=== PATIENT | male | born 1965 | race Caucasian/White ===

== ENCOUNTER 2017-05-23 13:15 | Inpatient (IN) | payer MEDICAID ==
[~2017-05-23] VITALS: Ht 175.3 cm; Wt 96.0 kg
[~2017-05-23 13:15] MED LIST: ALBU8.5H5 PO; ARIP5TAB13 PO; ATOR20TA9 PO; BECL8.7A7 INH; CLON2TAB PO; DIVA500T2 PO; ENAL10TA PO; HYDR25TA11 PO; HYDR50TA13 PO; INSU100V13 SQ; LATUDA; LISI-167 PO; LISI40TA PO; METF500T4 PO; OXCA600T3 PO; PARO40TA61 PO; QUET200T4 PO; REMERON; SIMV20TA3 PO; ZOLP10TA PO
[2017-05-23] MEDS ORDERED: SODIUM CHLORIDE 0.9% 1,000ML IVBOLUS ONE (14:00)
[2017-05-23] MEDS ORDERED: SODIUM CHLORIDE FLUSH 10ML SYR IVF ONE (14:00)
[2017-05-23] MEDS ORDERED: ONDANSETRON 2MG/ML, 2ML IVPush ONE (14:00)
[2017-05-23 14:15] LABS: HEMATOCRIT 45.2 % (39.2-51.8); HEMOGLOBIN 15.3 g/dL (13.7-18.0); WHITE BLOOD COUNT 9.1 x10^3/uL (3.4-10)
[2017-05-23] MEDS ORDERED: ONDANSETRON 2MG/ML, 2ML ONE (14:25)
[2017-05-23 14:29] LABS: ASPARTATE AMINO TRANSFERASE 20 U/L (15-37); BLOOD UREA NITROGEN 13 mg/dL (7-18)
[2017-05-23] MEDS ORDERED: OMNIPAQUE 350 MG/ML, 100ML BOTTLE ONE (14:59)
[2017-05-23] MEDS ORDERED: DEXTROSE 10%, 250ML IV ONE (15:30)
[2017-05-23] MEDS ORDERED: ONDANSETRON 2MG/ML, 2ML IVPush PRN (17:30)
[2017-05-23] MEDS ORDERED: hydrALAzine 20 MG/ML, 1ML IVPush PRN (17:30)
[2017-05-23] MEDS ORDERED: ACETAMINOPHEN 325 MG TABLET PO PRN (17:30)
[2017-05-23] MEDS ORDERED: HYDROcodone/APAP 5/325 TABLET PO PRN (17:30)
[2017-05-23] MEDS ORDERED: FUROSEMIDE 40 MG/4 ML IV ONE (17:30)
[2017-05-23] MEDS ORDERED: morphine SULFATE 10 MG/ML, 1ML IVPush PRN (17:30)
[2017-05-23] MEDS: SODIUM CHLORIDE 0.9% 1,000 ML IV SCH (18:36)
[2017-05-23 18:44] VITALS: BP 131/89
[2017-05-23 20:00] VITALS: BP 126/81
[2017-05-23] MEDS: INSULIN DETEMIR 100 UNITS/ML, PEN SQ-INSULIN SCH (20:26)
[2017-05-23] MEDS: ENOXAPARIN 40 MG/0.4 ML SQ SCH (20:38)
[2017-05-23] MEDS: PANTOPROZOLE 40MG TABLET PO SCH (20:38)
[2017-05-23] MEDS: OXCARBAZEPINE 150 MG TABLET PO SCH (20:39)
[2017-05-23] MEDS ORDERED: ATORVASTATIN 20 MG TABLET PO SCH (21:00)
[2017-05-23] MEDS ORDERED: CLON-365 PO (21:03)
[2017-05-23] MEDS ORDERED: ASPI-515 PO (21:04)
[2017-05-23] MEDS ORDERED: GLIP5TAB22 PO (21:04)
[2017-05-23] MEDS ORDERED: RESTLESS LEG PO (21:11)
[2017-05-23] MEDS ORDERED: QUET25TA5 PO (21:11)
[2017-05-23 22:33] LABS: IS PT STATUS REG ER OR PRE ER? NO
[2017-05-24] MEDS: SODIUM CHLORIDE 0.9% 1,000 ML IV SCH ×2 (02:06→10:30)
[2017-05-24 03:54] VITALS: BP_SYST 121; BP_SYST 133; BP_SYST 135; BP_DIAS 84; BP_DIAS 85; BP_DIAS 90
[2017-05-24 05:22] LABS: HEMATOCRIT 44.5 % (39.2-51.8); HEMOGLOBIN 15.2 g/dL (13.7-18.0); WHITE BLOOD COUNT 7.6 x10^3/uL (3.4-10)
[2017-05-24 05:46] LABS: ASPARTATE AMINO TRANSFERASE 24 U/L (15-37); BLOOD UREA NITROGEN 19 mg/dL (7-18)
[2017-05-24 05:47] LABS: IS PT STATUS REG ER OR PRE ER? NO
[2017-05-24 07:21] VITALS: BP 114/64
[2017-05-24 07:45] VITALS: BP 126/70
[2017-05-24] MEDS ORDERED: LISINOPRIL 20 MG TABLET PO SCH (09:00)
[2017-05-24] MEDS: INSULIN DETEMIR 100 UNITS/ML, PEN SQ-INSULIN SCH (09:00)
[2017-05-24] MEDS: PANTOPROZOLE 40MG TABLET PO SCH (10:37)
[2017-05-24] MEDS: OXCARBAZEPINE 150 MG TABLET PO SCH (10:38)
[2017-05-24] MEDS ORDERED: OMEP-110 PO (13:38)
[2017-05-24] MEDS ORDERED: MAGNESIUM SULFATE PMX 4GM/100M 100 ML IV ONE (14:00)
[2017-05-24 14:18] VITALS: BP 119/78
[2017-05-24] MEDS: ENOXAPARIN 40 MG/0.4 ML SQ SCH (17:30)
== END 2017-05-24 18:35 | disposition home or self-care (01) | DRG 74 ==
LOC: ED 14:04 → EDIP 16:29 → SUATTDRO 16:37 → 4EST 18:24
PROVIDERS: ADMIT Internal Medicine; ATTEND Internal Medicine
DX: G90.8 Other disorders of autonomic nervous system (principal); E11.649 Type 2 diabetes mellitus with hypoglycemia without coma; E87.1 Hypo-osmolality and hyponatremia; I10 Essential (primary) hypertension; E78.5 Hyperlipidemia, unspecified; E66.9 Obesity, unspecified; E78.00 Pure hypercholesterolemia, unspecified; Z68.31 Body mass index [BMI] 31.0-31.9, adult; F31.9 Bipolar disorder, unspecified; J45.909 Unspecified asthma, uncomplicated; K29.70 Gastritis, unspecified, without bleeding; R63.1 Polydipsia; Z82.49 Family history of ischemic heart disease and other diseases of the circulatory system; Z87.891 Personal history of nicotine dependence; Z85.828 Personal history of other malignant neoplasm of skin; Z88.5 Allergy status to narcotic agent
CPT/HCPCS: 36415; 71010; 74177; 80053; 81003; 82962; 83036; 83690; 83735; 84100; 84443; 84484; 85025; 93005; 93306; 93880; 96361; 96374; J1650; J1940; J2405; Q9967; J3475; J7030

== ENCOUNTER 2017-07-21 07:35 | Emergency (ER) | payer MEDICAID ==
[~2017-07-21] VITALS: Ht 175.3 cm; Wt 95.6 kg
[~2017-07-21 07:35] MED LIST changes: +ASPI-515 PO; +CLON-365 PO; +GLIP5TAB22 PO; +OMEP-110 PO; +QUET25TA5 PO; +RESTLESS LEG PO
[2017-07-21 09:07] VITALS: BP 160/97
== END 2017-07-21 09:09 | disposition home or self-care (01) ==
LOC: ED 08:48
DX: J20.8 Acute bronchitis due to other specified organisms (principal); B96.89 Other specified bacterial agents as the cause of diseases classified elsewhere; E11.9 Type 2 diabetes mellitus without complications; E78.00 Pure hypercholesterolemia, unspecified; J45.909 Unspecified asthma, uncomplicated; I10 Essential (primary) hypertension; G43.909 Migraine, unspecified, not intractable, without status migrainosus
CPT/HCPCS: 71020; 93005; 99284

== ENCOUNTER 2018-06-09 19:28 | Emergency (ER) | payer MEDICAID ==
[~2018-06-09] VITALS: Ht 175.3 cm; Wt 100.0 kg
[~2018-06-09 19:28] MED LIST changes: -CLON-365 PO; +CLON1TAB11 PO; +METF500T17 PO; -METF500T4 PO
[2018-06-09 19:39] VITALS: BP 154/92
[2018-06-09] MEDS ORDERED: METHOCARBAMOL 750 MG TABLET PO ONE (20:00)
[2018-06-09] MEDS ORDERED: METHOCARBAMOL 750 MG TABLET ONE (20:10)
== END 2018-06-09 20:52 | disposition home or self-care (01) ==
LOC: ED 20:46
DX: S46.911A Strain of unspecified muscle, fascia and tendon at shoulder and upper arm level, right arm, initial encounter (principal); I10 Essential (primary) hypertension; E11.9 Type 2 diabetes mellitus without complications; V49.59XA Passenger injured in collision with other motor vehicles in traffic accident, initial encounter; Y93.89 Activity, other specified; Y92.89 Other specified places as the place of occurrence of the external cause; Y99.8 Other external cause status
CPT/HCPCS: 71046; 99284

== ENCOUNTER 2019-03-21 14:54 | Observation (INO) | payer MEDICAID, OTHER ==
[~2019-03-21] VITALS: Ht 175.3 cm; Wt 95.3 kg
[~2019-03-21 14:54] MED LIST changes: +ATOR20TA37 PO; -ATOR20TA9 PO
[2019-03-21] MEDS ORDERED: METF500T17 PO (15:22)
[2019-03-21] MEDS ORDERED: PROP10TA51 PO (15:22)
--- NOTE | 2019-03-21 15:24 | NUR ---
PT TO ED FOR LABILE BS AND LIGHTHEADEDNESS SINCE WEDNESDAY. PT CONNECTED TO MONITORS. VSS. VACUUM FRAME OPERATOR STUDENT TO BS FOR ASSESSMENT.
[2019-03-21 15:45] LABS: PH, VENOUS 7.411 pH (7.320-7.420)
[2019-03-21 15:47] LABS: FIO2 ROOM AIR %; O2 FLOW ROOM AIR L/min
[2019-03-21 15:48] LABS: BASOPHILS # (AUTO) 0.08 x10^3/uL (0-0.1); BASOPHILS % (AUTO) 1 % (0-1); EOSINOPHILS # (AUTO) 0.35 x10^3/uL (0-0.4); EOSINOPHILS % (AUTO) 4 % (1-7); LYMPHOCYTES # (AUTO) 2.17 x10^3/uL (1-3.4); LYMPHOCYTES % (AUTO) 23 % (22-44); MD NO; MEAN CORPUSCULAR HEMOGLOBIN 31.2 pg (27.5-34.5); MEAN CORPUSCULAR VOLUME 91.7 fL (81-97); MEAN PLATELET VOLUME 9.8 fL (7.4-10.4); MONOCYTES # (AUTO) 0.86 x10^3/uL (0.2-0.8); MONOCYTES % (AUTO) 9 % (2-9); NEUTROPHILS # (AUTO) 5.84 x10^3/uL (1.8-6.8); NEUTROPHILS % (AUTO) 63 % (42-75); PLATELET COUNT 184 x10^3/uL (130-400); RED BLOOD COUNT 4.93 x10^6/uL (4.38-5.82); RED CELL DISTRIBUTION WIDTH 13.3 % (9.4-14.8)
[2019-03-21 15:56] LABS: ALANINE AMINOTRANSFERASE 54 U/L (12-78); ALBUMIN 3.7 g/dL (3.4-5.0); ANION GAP 8 mmol/L (5-15); CALCIUM 9.1 mg/dL (8.5-10.1); CHLORIDE 108 mmol/L (98-107); CREATININE 0.85 mg/dL (0.7-1.3)
[2019-03-21 15:59] LABS: ALKALINE PHOSPHATASE 92 U/L (45-117); BILIRUBIN,TOTAL 0.5 mg/dL (0.2-1.0); TOTAL PROTEIN 6.9 g/dL (6.4-8.2)
[2019-03-21] MEDS ORDERED: ASPIRIN 81 MG TABLET CHEW ONE (15:59)
[2019-03-21] MEDS ORDERED: ASPIRIN 81 MG TABLET CHEW PO ONE (16:00)
--- NOTE | 2019-03-21 16:00 | NUR ---
DR. VELASQUEZ TO FOR ASSESSMENT.
[2019-03-21 16:03] LABS: HEMOGLOBIN A1C 7.3 % (4.2-6.3)
[2019-03-21 16:14] LABS: TROPONIN I < 0.015 ng/mL (0.000-0.045)
--- NOTE | 2019-03-21 16:20 | NUR ---
BREAK RN: PT UPRIGHT ON GURNEY AWAKE & COMFORTABLE, RESPONDS APPROP TO STAFF, NAD, NO NEEDS AT THIS TIME, CALL LIGHT WITHIN REACH.
[2019-03-21 16:24] LABS: ACETONE, SERUM Trace (10mg/dL) mg/dL (Negative)
--- NOTE | 2019-03-21 17:15 | NUR ---
PT RESTING IN ROOM. VSS. DR. VELASQUEZ TO BS TO UPDATE ON POC. IV ESTABLISHED. PLAN TO ADMIT. AWAITING ROOM ASSIGNMENT.
[2019-03-21 17:18] LABS: MICROSCOPIC NOT IND
[2019-03-21 17:31] LABS: CULTURE INDICATED? NO
--- NOTE | 2019-03-21 17:48 | NUR ---
pt up to rr with standy by assist from this rn. gait steady. vss. no other needs expressed. awaiting diet tray and room assignment.
--- NOTE | 2019-03-21 18:06 | NUR ---
PT RESTING IN ROOM. VSS. HOSPITALIST TO BS FOR ASSESSMENT. PLAN TO ADMIT. AWAITING ROOM ASSIGNMENT.
[2019-03-21] MEDS ORDERED: ACETAMINOPHEN 325 MG TABLET PO PRN (19:00)
[2019-03-21] MEDS ORDERED: ONDANSETRON ODT 4 MG PO PRN (19:00)
[2019-03-21] MEDS ORDERED: DOCUSATE 100 MG CAPSULE PO PRN (19:00)
[2019-03-21] MEDS ORDERED: ENALAPRILAT 1.25 MG/ML, 2ML IVPush PRN (19:00)
--- NOTE | 2019-03-21 19:06 | NUR ---
PT RESTING IN ROOM. VSS. PLAN TO ADMIT. AWAITING ROOM ASSIGNMENT.
--- NOTE | 2019-03-21 19:45 | NUR ---
REPORT TO MAIRA PARRISH. PT READY FOR TRANSPORT.
[2019-03-21] MEDS ORDERED: ENOXAPARIN 40 MG/0.4 ML SQ SCH (20:00)
[2019-03-21] MEDS ORDERED: MAGNESIUM SULFATE PMX 2GM/50ML 50 ML IV ONE (20:00)
[2019-03-21] MEDS ORDERED: QUET50TA5 PO (20:14)
[2019-03-21 20:16] VITALS: BP 122/78
[2019-03-21] MEDS ORDERED: ALBUTEROL SULFATE 2.5 MG/3 ML NPPB PRN (20:30)
[2019-03-21] MEDS: OXCARBAZEPINE 150 MG TABLET PO SCH (20:48)
[2019-03-21] MEDS ORDERED: ATORVASTATIN 20 MG TABLET PO SCH (21:00)
[2019-03-21 21:39] LABS: TROPONIN I < 0.015 ng/mL (0.000-0.045)
[2019-03-21] MEDS: INSULIN LISPRO 100 UNITS/ML, PEN SQ-INSULIN SCH (22:16)
[2019-03-22 00:52] VITALS: BP 144/89
[2019-03-22 05:40] LABS: BASOPHILS # (AUTO) 0.06 x10^3/uL (0-0.1); BASOPHILS % (AUTO) 1 % (0-1); EOSINOPHILS # (AUTO) 0.33 x10^3/uL (0-0.4); EOSINOPHILS % (AUTO) 5 % (1-7); LYMPHOCYTES # (AUTO) 1.81 x10^3/uL (1-3.4); LYMPHOCYTES % (AUTO) 26 % (22-44); MD NO; MEAN CORPUSCULAR HGB CONC 34.1 g/dL (33.2-36.2); MEAN CORPUSCULAR VOLUME 91.2 fL (81-97); MONOCYTES # (AUTO) 0.65 x10^3/uL (0.2-0.8); MONOCYTES % (AUTO) 9 % (2-9); NEUTROPHILS % (AUTO) 59 % (42-75); PLATELET COUNT 161 x10^3/uL (130-400); RED BLOOD COUNT 5.01 x10^6/uL (4.38-5.82); RED CELL DISTRIBUTION WIDTH 13.7 % (9.4-14.8)
[2019-03-22 05:45] LABS: ANION GAP 4 mmol/L (5-15); CALCIUM 8.7 mg/dL (8.5-10.1); CHLORIDE 106 mmol/L (98-107); CHOLESTEROL, TOTAL 146 mg/dL (140-239); CREATININE 0.73 mg/dL (0.7-1.3)
[2019-03-22 05:50] LABS: CHOL/HDL RATIO 3.3; HDL CHOL % 30 % (26-37); HDL CHOLESTEROL (DIRECT) 44 mg/dL (40-60); LDL CHOLESTEROL,CALCULATED 59 mg/dL (54-169); LDL/HDL RATIO 1.3 (0.5-3.0); TRIGLYCERIDES 213 mg/dL (50-200); TROPONIN I < 0.015 ng/mL (0.000-0.045); VLDL CHOLESTEROL 43 mg/dL (0-25)
[2019-03-22 07:10] VITALS: BP 144/88
[2019-03-22] MEDS ORDERED: MAGNESIUM SULFATE PMX 2GM/50ML 50 ML IV ONE (07:30)
[2019-03-22] MEDS: INSULIN LISPRO 100 UNITS/ML, PEN SQ-INSULIN SCH ×2 (08:02→12:42)
[2019-03-22] MEDS ORDERED: LISINOPRIL 40 MG TABLET PO SCH (09:00)
[2019-03-22] MEDS ORDERED: ASPIRIN 81 MG TABLET EC PO SCH (09:00)
[2019-03-22] MEDS: OXCARBAZEPINE 150 MG TABLET PO SCH (10:10)
[2019-03-22 12:38] VITALS: BP 133/88
== END 2019-03-22 15:34 | disposition home or self-care (01) ==
LOC: ED 17:17 → EDIP 18:59 → 5SO 20:02 → DCLOUNGE 03-22 13:23
PROVIDERS: ADMIT Hospitalist; ATTEND Hospitalist
DX: R07.89 Other chest pain (principal); E11.65 Type 2 diabetes mellitus with hyperglycemia; I11.9 Hypertensive heart disease without heart failure; E78.5 Hyperlipidemia, unspecified; F31.9 Bipolar disorder, unspecified; E83.42 Hypomagnesemia; G47.33 Obstructive sleep apnea (adult) (pediatric); J45.909 Unspecified asthma, uncomplicated; Z85.828 Personal history of other malignant neoplasm of skin; Z87.891 Personal history of nicotine dependence; Z79.899 Other long term (current) drug therapy; Z79.82 Long term (current) use of aspirin; Z79.84 Long term (current) use of oral hypoglycemic drugs
CPT/HCPCS: 36415; 80048; 80053; 80061; 81003; 82010; 82803; 82962; 83036; 83735; 84484; 85025; 93005; 93017; 96365; 96366; 96372; 99284; G0378; J1650; J1815; J3475